=== PATIENT | female | born 1950 | race Caucasian/White ===

== ENCOUNTER 2018-01-08 17:52 | Observation (INO) ==
[2018-01-08 18:07] VITALS: BMI 29.2
[2018-01-08] MEDS ORDERED: MORPHINE SULFATE INJ 4 MG IM ONE (20:12)
[2018-01-08] MEDS ORDERED: ZOFRAN INJ 4 MG VIAL IM ONE (20:12)
[2018-01-08] MEDS ORDERED: MORPHINE SULFATE INJ 4 MG ONE (20:17)
[2018-01-08] MEDS ORDERED: ZOFRAN INJ 4 MG VIAL ONE (20:17)
--- NOTE | 2018-01-08 20:34 | ED.ABDFE ---
HPI Time Seen Time Seen by Provider: 01/08/18 19:57 PCP Primary Care Physician: [facility] HPI Comment HPI Comment: SEVERE LEFT SIDE PAIN AFTER A FALL 2 DAYS AGO. WORSE TODAY. EVALUATED AT ED IN [facility] AND [facility] FOR SAME. TAKING TYLENOL 3 FOR PAIN AND STILL HAVING 10/10 PAIN. Complaint Doctors Chief Complaint Comments: LEFT SIDED PIN AFTER A FALL. Chief Complaint:: PT C/O PAIN TO HER LEFT SIDE DUE TO FALLING IN THE TUB ON FRIDAY NIGHT , AND PT WAS SEEN IN [facility] ER CT AND ALL TEST WERE NEGATIVE , AND PT WAS SEEN AT THE [facility] TODAY AND PT WAS TOLD TO COME TO THE ER, PT C/O NOT BEING ABLE TO MOVE, WITHOUT HAVING PAIN , PT WAS GIVEN TYLENOL#3, AND A INJ OF MUSCLE RELAXER BEFORE LEAVING THE ER, BR Self Treatment fo Chief Complaint: PT STATES " SHE HAS BEEN LAYING IN THE BED " .BR Reviewed Nurses Notes Review: Yes Source History Provided: Family Member Mode of arrival Mode of Arrival: Ambulatory Timing Onset of Chief Complaint: 01/06/18 Came on: Suddenly Duration Since Onset: Constant Duration: Days Location Location: LUQ (LEFT CHEST) Severity Severity: Moderate Quality Quality: Aching and Sharp Context History of: Abdominal surgery Modifying factors Worsening Factors: Movement Improving Factors: Lying Still Associated signs and symptoms Associated Signs and Symptoms: Other (CHEST WALL/RIB PAIN, LEFT LEFT ABDOMINAL PAIN.) PMH PMH Past Medical History: Yes Past Medical History Comment: THYROID , CHOLESTEROL , GERD Past Surgical History: Yes Past Surgical History Comment: APPENDIX, TUBAL Family History History of Family Medical Conditions: No Social History Does patient currently use any type of tobacco product: No Have you used tobacco products in the last 12 months: No Type of Tobacco Use: None Does any household member use tobacco: No Do you use any recreational Drugs:: No Lives With: Family Lives Where: Home infectious screening In the last 2 months have you had wt loss of >10#?: NO Have you had fever, night sweats or hemotysis?: No Have you traveled outside the country in the last 6 months?: No Isolation: Standard ROS Review of Systems Constitutional: No Symptoms Reported Eyes: No Symptoms Reported ENTM: No Symptoms Reported Respiratoy: Other (PAIN ON DEEP BREATHING.) Cardiovascular: Chest Pain (LEFT RIB PAIN) Gastrointestinal/Abdominal: Abdominal Pain (LEFT UPPER ABDOMINAL PAIN.) Genitourinary: No Symptoms Reported Neurological: No Symptoms Reported Musculoskeletal: Muscle Pain Integumentary: Bruises (LUQ ABDOMEN.) Hematologic/Lymphatic: No Symptoms Reported Endocrine: No Symptoms Reported Psychiatric: No Symptoms Reported All Other Systems: Reviewed and Negative PE Vital Signs Vitals: Temperature 98.0 F Pulse Rate [Right Radial] 76 Pulse Rate 72 Respiratory Rate 18 Blood Pressure [Right Arm] 162/74 Blood Pressure 189/91 O2 Sat by Pulse Oximetry 94 General Limitations: No Limitations General Appearance: Alert and In No Apparent Distress (AT RESTN NO RESPMDISTRESS.) Head Head Exam: Normal Inspection Eyes Eye exam: Normal Appearance ENT ENT Exam: Normal Oropharynx, Normal External Ear Exam and TM's Normal Bilaterally Neck Neck Exam: Trachea Midline; negative Tenderness, Meningismus and Lymphadenopathy Chest Chest Inspection: Symmetric Chest Wall Rise Respiratory Respiratory Exam: Chest Wall Tenderness (LEFT CHEST WALL TENDERNESS.) Respiratory Exam: Bilateral: Rhonchi, Upper: Rhonchi and Lower: Rhonchi Cardiovascular Cardiovascular Exam: Regular Rate and Normal Rhythm Abdominal Exam Abdominal Exam: Normal Bowel Sounds, Soft and Tenderness Abdominal Tenderness: LUQ and Moderate Rectal Rectal Exam: Deferred Back Back Exam: Normal Inspection Extremeties Extremities Exam: Normal Inspection External Exam: Female: Deferred : Speculum Exam (Female): Deferred : Bimanual Exam (female): Deferred Neurologic Neurological Exam: Alert and Oriented X3; negative Motor Sensory Deficit Psychiatric Psychiatric Exam: Normal Affect and Normal Mood Skin Skin Exam: Other MDM Additional Information Obtained From Additional information provided by: Family Differential Diagnosis Other differential diagnosis: LUQ ABDOMINAL PAIN, CHEST PAIN, RIB PAIN, INTRAIABLE PAIN, CONTUSION OR RIB COURSE Treatment Treatment: SEE ORDERS. Consultation Consultation Comments: PATIENT ADMITTED TO HOSPITAL. Education/Counseling Education/Counseling: Patient and Family Educated On: Diagnosis ROR Labs Reviewed Result Diagrams: 01/10/18 04:53 01/10/18 04:53 Laboratory: 01/09/18 01:09 Urine,Clean Catch Urine Culture - Final Klebsiella Pneumoniae WBC 13.8 X10^3/uL (3.6-10.0) H 01/10/18 04:53 RBC 4.10 X10^6/uL (3.5-5.4) 01/10/18 04:53 Hgb 12.7 g/dL (12.0-16.0) 01/10/18 04:53 Hct 37.2 % (36.0-47.0) 01/10/18 04:53 MCV 90.8 fL (80.0-100.0) 01/10/18 04:53 MCH 30.9 pg (27.0-34.0) 01/10/18 04:53 MCHC 34.0 g/dL (33.0-35.0) 01/10/18 04:53 RDW 12.4 % (11.6-16.5) 01/10/18 04:53 Plt Count 285 X10^3/uL (150.0-450.0) 01/10/18 04:53 MPV 9.0 fL (7.4-11.0) 01/10/18 04:53 Neut % (Auto) 82.1 % (42.0-75.0) H 01/10/18 04:53 Lymph % (Auto) 14.3 % (21.0-51.0) L 01/10/18 04:53 [place] % (Auto) 3.4 % (0.0-13.0) 01/10/18 04:53 Eos % (Auto) 0.0 % (0.9-2.9) L 01/10/18 04:53 Baso % (Auto) 0.2 % (0.2-1.0) 01/10/18 04:53 Neut # (Auto) 11.3 x10^3/uL (2.2-4.8) H 01/10/18 04:53 Lymph # (Auto) 2.0 X10^3/uL (1.3-2.9) 01/10/18 04:53 [place] # (Auto) 0.5 x10^3/uL (0.3-0.8) 01/10/18 04:53 Eos # (Auto) 0.0 x10^3/uL (0.0-0.2) 01/10/18 04:53 Baso # (Auto) 0.0 X10^3/uL (0.0-0.1) 01/10/18 04:53 Absolute Nucleated RBC 0.0 /100WBC 01/10/18 04:53 Sodium 140 mmol/L (136-145) 01/10/18 04:53 Corrected Sodium 141 mmol/L (136-145) 01/10/18 04:53 Potassium 4.2 mmol/L (3.5-5.1) 01/10/18 04:53 Chloride 104 mmol/L (98-107) 01/10/18 04:53 Carbon Dioxide 28.4 mmol/L (21-32) 01/10/18 04:53 BUN 8 mg/dL (7-18) 01/10/18 04:53 Creatinine 0.83 mg/dL (0.55-1.02) 01/10/18 04:53 Est GFR (MDRD) Af Amer > 60 (>60) 01/10/18 04:53 Est GFR (MDRD) Non-Af > 60 (>60) 01/10/18 04:53 Glucose 148 mg/dL (65-99) H 01/10/18 04:53 Calcium 8.2 mg/dL (8.5-10.1) L 01/10/18 04:53 Corrected Calcium 8.8 mg/dL (8.5-10.1) 01/10/18 04:53 Total Bilirubin 0.30 mg/dL (0.2-1.0) 01/10/18 04:53 AST 20 Units/L (15-37) 01/10/18 04:53 ALT 30 Units/L (12-78) 01/10/18 04:53 Alkaline Phosphatase 123 Units/L (46-116) H 01/10/18 04:53 Total Protein 7.1 g/dL (6.4-8.2) 01/10/18 04:53 Albumin 3.2 g/dL (3.4-5.0) L 01/10/18 04:53 Globulin 3.9 g/dL (2.5-4.5) 01/10/18 04:53 Albumin/Globulin Ratio 0.8 Ratio (1.1-2.1) L 01/10/18 04:53 Specimen Type Clean catch urine 01/09/18 01:09 Urine Color Dark yellow (YELLOW) 01/09/18 01:09 Urine Appearance Clear (CLEAR) 01/09/18 01:09 Urine pH 6.0 (5.0 - 8.0) 01/09/18 01:09 Ur Specific [place] 1.020 (1.000-1.030) 01/09/18 01:09 Urine Protein 1+ (NEGATIVE) 01/09/18 01:09 Urine Glucose (UA) Negative (NEGATIVE) 01/09/18 01:09 Urine Ketones Negative (NEGATIVE) 01/09/18 01:09 Urine Occult Blood 1+ (NEGATIVE) 01/09/18 01:09 Urine Nitrite Negative (NEGATIVE) 01/09/18 01:09 Urine Bilirubin Negative (NEGATIVE) 01/09/18 01:09 Urine Urobilinogen Normal (NORMAL) 01/09/18 01:09 Ur Leukocyte Esterase 2+ (NEGATIVE) 01/09/18 01:09 Urine RBC 10-20 /HPF (NONE SEEN) 01/09/18 01:09 Urine WBC 10-20 /HPF (NONE SEEN) 01/09/18 01:09 Ur Squamous Epith Cells Moderate /HPF (NEGATIVE) 01/09/18 01:09 Urine Bacteria 2+ /HPF (NEGATIVE) 01/09/18 01:09 Ur Culture Indicated? Yes/culture set up 01/09/18 01:09 XRAY XRAY Interpreted by: Radiologist XRAY Findings: NOTED REPORT. Instructions Instructions: Rib Fracture, [id number]
[2018-01-08 20:37] LABS: BASOPHILS % (AUTO) 0.4 % (0.2-1.0); EOSINOPHILS # (AUTO) 0.1 x10^3/uL (0.0-0.2); EOSINOPHILS % (AUTO) 1.2 % (0.9-2.9); HEMATOCRIT 38.2 % (36.0-47.0); LYMPHOCYTES # (AUTO) 3.6 X10^3/uL (1.3-2.9); LYMPHOCYTES % (AUTO) 40.3 % (21.0-51.0); MEAN CORPUSCULAR HEMOGLOBIN 30.8 pg (27.0-34.0); MEAN CORPUSCULAR HGB CONC 34.1 g/dL (33.0-35.0); MEAN CORPUSCULAR VOLUME 90.4 fL (80.0-100.0); MEAN PLATELET VOLUME 8.3 fL (7.4-11.0); MONOCYTES # (AUTO) 0.8 x10^3/uL (0.3-0.8); MONOCYTES % (AUTO) 8.6 % (0.0-13.0); NEUTROPHILS # (AUTO) 4.4 x10^3/uL (2.2-4.8); NEUTROPHILS % (AUTO) 49.5 % (42.0-75.0); PLATELET COUNT 279 X10^3/uL (150.0-450.0); RED BLOOD COUNT 4.23 X10^6/uL (3.5-5.4); RED CELL DISTRIBUTION WIDTH 13.1 % (11.6-16.5); WHITE BLOOD COUNT 8.9 X10^3/uL (3.6-10.0)
[2018-01-08 21:17] LABS: ALANINE AMINOTRANSFERASE 30 Units/L (12-78); ALBUMIN 3.5 g/dL (3.4-5.0); ALKALINE PHOSPHATASE 128 Units/L (46-116); ASPARTATE AMINO TRANSFERASE 23 Units/L (15-37); BLOOD UREA NITROGEN 9 mg/dL (7-18); CALCIUM 8.4 mg/dL (8.5-10.1); CARBON DIOXIDE 27.9 mmol/L (21-32); CHLORIDE 104 mmol/L (98-107); CREATININE 0.77 mg/dL (0.55-1.02); SODIUM 141 mmol/L (136-145); TOTAL PROTEIN 7.1 g/dL (6.4-8.2); eGFR NON BLACK RACES > 60 (>60)
[2018-01-09] MEDS ORDERED: MORPHINE SULFATE INJ 4 MG IVP PRN (00:09)
[2018-01-09 01:45] LABS: BILIRUBIN,URINE NEGATIVE (NEGATIVE); BLOOD/HEMOGLOBIN,URINE 1+ (NEGATIVE); GLUCOSE, URINE NEGATIVE (NEGATIVE); KETONES,URINE NEGATIVE (NEGATIVE); LEUKOCYTE ESTERASE ,URINE 2+ (NEGATIVE); NITRITES,URINE NEGATIVE (NEGATIVE); PROTEIN,URINE 1+ (NEGATIVE); UROBILINOGEN,URINE NORMAL (NORMAL)
[2018-01-09 01:57] LABS: APPEARANCE,URINE CLEAR (CLEAR); COLOR,URINE DARK YELLOW (YELLOW)
[2018-01-09 01:58] LABS: BACTERIA,URINE 2+ /HPF (NEGATIVE); SQUAMOUS EPITHELIAL CELL,UR MODERATE /HPF (NEGATIVE)
[2018-01-09] MEDS: NS 1000 ML 1,000 ML IV SCH ×2 (02:03→13:57)
[2018-01-09] MEDS: ZOFRAN INJ 4 MG VIAL IVP PRN (02:04)
[2018-01-09] MEDS: MORPHINE SULFATE INJ 4 MG IVP PRN (05:40)
[2018-01-09] MEDS ORDERED: ZANAFLEX PO PRN (05:41)
[2018-01-09 06:18] LABS: BASOPHILS % (AUTO) 0.4 % (0.2-1.0); EOSINOPHILS # (AUTO) 0.1 x10^3/uL (0.0-0.2); HEMATOCRIT 36.3 % (36.0-47.0); HEMOGLOBIN 12.7 g/dL (12.0-16.0); LYMPHOCYTES # (AUTO) 3.2 X10^3/uL (1.3-2.9); LYMPHOCYTES % (AUTO) 33.9 % (21.0-51.0); MEAN CORPUSCULAR HEMOGLOBIN 31.6 pg (27.0-34.0); MEAN CORPUSCULAR HGB CONC 35.1 g/dL (33.0-35.0); MEAN CORPUSCULAR VOLUME 90.2 fL (80.0-100.0); MEAN PLATELET VOLUME 8.7 fL (7.4-11.0); MONOCYTES # (AUTO) 0.8 x10^3/uL (0.3-0.8); MONOCYTES % (AUTO) 8.9 % (0.0-13.0); NEUTROPHILS # (AUTO) 5.3 x10^3/uL (2.2-4.8); NEUTROPHILS % (AUTO) 55.8 % (42.0-75.0); PLATELET COUNT 270 X10^3/uL (150.0-450.0); RED BLOOD COUNT 4.02 X10^6/uL (3.5-5.4); RED CELL DISTRIBUTION WIDTH 12.8 % (11.6-16.5); WHITE BLOOD COUNT 9.4 X10^3/uL (3.6-10.0)
[2018-01-09 06:32] LABS: ALANINE AMINOTRANSFERASE 28 Units/L (12-78); ALBUMIN 3.3 g/dL (3.4-5.0); ALKALINE PHOSPHATASE 123 Units/L (46-116); ASPARTATE AMINO TRANSFERASE 20 Units/L (15-37); BLOOD UREA NITROGEN 9 mg/dL (7-18); CALCIUM 8.1 mg/dL (8.5-10.1); CARBON DIOXIDE 29.9 mmol/L (21-32); CHLORIDE 104 mmol/L (98-107); COR CA(FOR HYPOALB) 8.7 mg/dL (8.5-10.1); CREATININE 0.75 mg/dL (0.55-1.02); SODIUM 141 mmol/L (136-145); eGFR NON BLACK RACES > 60 (>60)
[2018-01-09] MEDS ORDERED: TYLENOL 325 MG TAB PO PRN (07:18)
[2018-01-09] MEDS: NORCO 7.5/325 MG TAB PO PRN (09:32)
[2018-01-09] MEDS ORDERED: ZOFRAN INJ 4 MG VIAL 16 MG, ATIVAN INJ 2 MG VIAL 1 MG, DECADRON INJ 10 MG in NS 50 ML I... IV PRN (10:33)
[2018-01-09] MEDS: SOLU-Medrol 125 MG VIAL IVP SCH ×2 (13:46→21:02)
--- NOTE | 2018-01-09 16:20 | DR.H&P ---
H&P - History & Physical for Day of: H&P Date: 01/08/18 - Chief Complaint Chief Complaint: left rib pain, painful breathing - History of Present Illness History of Present Illness: 67 WF ER ADMISSION AFTER PRESENTING WITH CO FALL EARLIER IN THE WEEK WITH LEFT RIB INJURY. PT C/O PAIN TO HER LEFT SIDE DUE TO FALLING IN THE TUB ON FRIDAY NIGHT , AND PT WAS SEEN IN [place] ER WAS TOLD CT AND ALL TEST WERE NEGATIVE , AND PT WAS SEEN AT THE [facility] TODAY AND PT WAS TOLD TO COME TO THE ER, PT C/O NOT BEING ABLE TO MOVE, WITHOUT HAVING SEVERE PAIN , PT WAS GIVEN TYLENOL#3, AND A INJ OF MUSCLE RELAXER BEFORE LEAVING THE ER WITHOUT ANY RELIEF OF SYMPTOMS. PT DENIES HX OF COPD, ASTHMA OR CAD. PT STATES SHE SLIPPED, NO SYNCOPE OR DIZZINESS. PT ADMITTED FOR PAIN CONTROL, EVALUATION OF PLEURITIC PAIN - Past Medical History Past Medical History: Anxiety, Arthritis - Past Surgical History Surgical History: Appendectomy - Family History Family Medical History: Diabetes Mellitus, Cancer, Hypertension - Social History Does patient currently use any type of tobacco product: No Have you used tobacco products in the last 12 months: No Type of Tobacco Use: None Does any household member use tobacco: No Alcohol Use: None Drug Use: None - Medications Home Medications: atorvastatin [From Lipitor] Allergy (Verified 01/08/18 17:59) ketorolac [From Toradol] Allergy (Verified 01/08/18 17:59) CONTINUE taking the following medications duloxetine 1 tab PO DAILY 01/08/18 [History] fenofibrate 80 mg PO DAILY 01/08/18 [History] levothyroxine [Synthroid] 1 tab PO DAILY 01/08/18 [History] propranolol 1 tab PO DAILY 01/08/18 [History] esomeprazole magnesium [Nexium] 20 mg PO QDAY 01/09/18 [History] - Review of Systems Constitutional: Weakness Eyes: No Symptoms Reported ENT: No Symptoms Reported Respiratory: Pleuritic Pain Cardiovascular: No Symptoms Reported Gastrointestinal: Nausea Genitourinary: No Symptoms Reported Musculoskeletal: Shoulder Pain, Back Pain Skin: No Symptoms Reported Neurological: No Symptoms Reported - Physical Exam Vital Signs: Temperature 97.9 F Pulse Rate [Right Radial] 67 Pulse Rate 72 Respiratory Rate 18 Blood Pressure [Right Arm] 128/75 Blood Pressure 189/91 O2 Sat by Pulse Oximetry 93 Oriented: Normal Eyes: Normal Ear: Normal Nose: Normal Throat: Normal Respiratory: RLL Diminished, LLL Diminished Cardiovascular: Normal Auscultation: Bowel Sounds: Normal Palpation: Normal Tenderness: Normal Skin: Bruising (MILD LEFT LATERAL UPPER ABD) Musculoskeletal: Left, Shoulder, Back:Thoracic, Tender (DIFFUSE LEFT RIBS, LATERAL CHEST WALL) Psychiatric: Anxiety Affect: Anxious Speech Pattern: Clear, Appropriate - Assessment/Plan (1) Multiple rib fractures Status: Acute Plan: ADMIT, PAIN CONTROL. PT CONSULT FOR RIB BELT/BINDER. RESP CONSULT FOR PULMONARY TOILETING. VERIFY HOME MEDS. SUPPLEMENTAL O2 PRN, BP CONTROL (2) Painful respiration Status: Acute (3) SUYAPA (generalized anxiety disorder) Status: Acute - Allergies Allergies/Adverse Reactions: Allergies Allergy/AdvReac Type Severity Reaction Status Date / Time atorvastatin [From Lipitor] Allergy Verified 01/08/18 17:59 ketorolac [From Toradol] Allergy Verified 01/08/18 17:59
--- NOTE | 2018-01-09 16:27 | PCM.PROG ---
Progress Note - Progress Note for Day of Date of Exam: 01/09/18 - Subjective Subjective: 67 WF ER ADMISSION WITH INTRACTABLE PAIN TO LEFT RIBS AND LATERAL CHEST AFTER FALL ON FRIDAY NIGHT. PT CURRENTLY ON IV MORPHINE WITHOUT RELIEF AND REPORTS OF KHALIL AND NAUSEA. PT DENIES HX OF COPD, ASTHMA OR CAD. PT GIVEN PO NORCO, PO MUSCLE RELAXER, ZOFRAN COCKTAIL, RIB BINDER - Past Medical Family Social History Past Med/Fam/Surg Hx: No changes since H&P Allergies: Allergies atorvastatin [From Lipitor] Allergy (Verified 01/08/18 17:59) ketorolac [From Toradol] Allergy (Verified 01/08/18 17:59) - Review of Systems ROS: No change since H&P - Vital Signs and I&O's Vital Signs: Temperature 97.9 F Pulse Rate [Right Radial] 67 Pulse Rate 72 Respiratory Rate 18 Blood Pressure [Right Arm] 128/75 Blood Pressure 189/91 O2 Sat by Pulse Oximetry 93 Intake and Output: Intake & Output 01/07/18 01/08/18 01/09/18 01/10/18 11:59 11:59 11:59 11:59 Intake Total 520 / 520 1653 / 1653 Balance 520 / 520 1653 / 1653 - Physical Exam Oriented: Normal Eyes: Normal Ear: Normal Nose: Normal Throat: Normal Respiratory: Left, Diminished Cardiovascular: Normal Auscultation: Bowel Sounds: Normal Tenderness: Normal Skin: Bruising (MILD LEFT LATERAL UPPER ABD) Musculoskeletal: Left, Shoulder, Back:Thoracic, Tender (DIFFUSE LEFT RIBS, LATERAL CHEST WALL) Psychiatric: Anxiety Affect: Anxious Speech Pattern: Clear, Appropriate - Laboratory and Diagnostics Result Diagrams: 01/09/18 05:30 01/09/18 05:30 Labs: Laboratory WBC 9.4 X10^3/uL (3.6-10.0) 01/09/18 05:30 RBC 4.02 X10^6/uL (3.5-5.4) 01/09/18 05:30 Hgb 12.7 g/dL (12.0-16.0) 01/09/18 05:30 Hct 36.3 % (36.0-47.0) 01/09/18 05:30 MCV 90.2 fL (80.0-100.0) 01/09/18 05:30 MCH 31.6 pg (27.0-34.0) 01/09/18 05:30 MCHC 35.1 g/dL (33.0-35.0) H 01/09/18 05:30 RDW 12.8 % (11.6-16.5) 01/09/18 05:30 Plt Count 270 X10^3/uL (150.0-450.0) 01/09/18 05:30 MPV 8.7 fL (7.4-11.0) 01/09/18 05:30 Neut % (Auto) 55.8 % (42.0-75.0) 01/09/18 05:30 Lymph % (Auto) 33.9 % (21.0-51.0) 01/09/18 05:30 [place] % (Auto) 8.9 % (0.0-13.0) 01/09/18 05:30 Eos % (Auto) 1.0 % (0.9-2.9) 01/09/18 05:30 Baso % (Auto) 0.4 % (0.2-1.0) 01/09/18 05:30 Neut # (Auto) 5.3 x10^3/uL (2.2-4.8) H 01/09/18 05:30 Lymph # (Auto) 3.2 X10^3/uL (1.3-2.9) H 01/09/18 05:30 [place] # (Auto) 0.8 x10^3/uL (0.3-0.8) 01/09/18 05:30 Eos # (Auto) 0.1 x10^3/uL (0.0-0.2) 01/09/18 05:30 Baso # (Auto) 0.0 X10^3/uL (0.0-0.1) 01/09/18 05:30 Absolute Nucleated RBC 0.0 /100WBC 01/09/18 05:30 Sodium 141 mmol/L (136-145) 01/09/18 05:30 Corrected Sodium TNP 01/09/18 05:30 Potassium 4.0 mmol/L (3.5-5.1) 01/09/18 05:30 Chloride 104 mmol/L (98-107) 01/09/18 05:30 Carbon Dioxide 29.9 mmol/L (21-32) 01/09/18 05:30 BUN 9 mg/dL (7-18) 01/09/18 05:30 Creatinine 0.75 mg/dL (0.55-1.02) 01/09/18 05:30 Est GFR (MDRD) Af Amer > 60 (>60) 01/09/18 05:30 Est GFR (MDRD) Non-Af > 60 (>60) 01/09/18 05:30 Glucose 101 mg/dL (65-99) H 01/09/18 05:30 Calcium 8.1 mg/dL (8.5-10.1) L 01/09/18 05:30 Corrected Calcium 8.7 mg/dL (8.5-10.1) 01/09/18 05:30 Total Bilirubin 0.30 mg/dL (0.2-1.0) 01/09/18 05:30 AST 20 Units/L (15-37) 01/09/18 05:30 ALT 28 Units/L (12-78) 01/09/18 05:30 Alkaline Phosphatase 123 Units/L (46-116) H 01/09/18 05:30 Total Protein 7.0 g/dL (6.4-8.2) 01/09/18 05:30 Albumin 3.3 g/dL (3.4-5.0) L 01/09/18 05:30 Globulin 3.7 g/dL (2.5-4.5) 01/09/18 05:30 Albumin/Globulin Ratio 0.9 Ratio (1.1-2.1) L 01/09/18 05:30 Specimen Type Clean catch urine 01/09/18 01:09 Urine Color Dark yellow (YELLOW) 01/09/18 01:09 Urine Appearance Clear (CLEAR) 01/09/18 01:09 Urine pH 6.0 (5.0 - 8.0) 01/09/18 01:09 Ur Specific [place] 1.020 (1.000-1.030) 01/09/18 01:09 Urine Protein 1+ (NEGATIVE) 01/09/18 01:09 Urine Glucose (UA) Negative (NEGATIVE) 01/09/18 01:09 Urine Ketones Negative (NEGATIVE) 01/09/18 01:09 Urine Occult Blood 1+ (NEGATIVE) 01/09/18 01:09 Urine Nitrite Negative (NEGATIVE) 01/09/18 01:09 Urine Bilirubin Negative (NEGATIVE) 01/09/18 01:09 Urine Urobilinogen Normal (NORMAL) 01/09/18 01:09 Ur Leukocyte Esterase 2+ (NEGATIVE) 01/09/18 01:09 Urine RBC 10-20 /HPF (NONE SEEN) 01/09/18 01:09 Urine WBC 10-20 /HPF (NONE SEEN) 01/09/18 01:09 Ur Squamous Epith Cells Moderate /HPF (NEGATIVE) 01/09/18 01:09 Urine Bacteria 2+ /HPF (NEGATIVE) 01/09/18 01:09 Ur Culture Indicated? Yes/culture set up 01/09/18 01:09 - Plan (1) Multiple rib fractures Status: Acute Plan: PAIN CONTROL. PT CONSULT FOR RIB BELT/BINDER. RESP CONSULT FOR PULMONARY TOILETING. VERIFY HOME MEDS. SUPPLEMENTAL O2 PRN, BP CONTROL (2) Painful respiration Status: Acute (3) SUYAPA (generalized anxiety disorder) Status: Acute (4) Headache Status: Acute Plan: PAIN CONTROL, MONITOR
[2018-01-10] MEDS: NS 1000 ML 1,000 ML IV SCH (02:49)
[2018-01-10] MEDS: NORCO 7.5/325 MG TAB PO PRN ×2 (04:03→11:37)
[2018-01-10 05:27] LABS: BASOPHILS % (AUTO) 0.2 % (0.2-1.0); HEMATOCRIT 37.2 % (36.0-47.0); HEMOGLOBIN 12.7 g/dL (12.0-16.0); LYMPHOCYTES % (AUTO) 14.3 % (21.0-51.0); MEAN CORPUSCULAR HEMOGLOBIN 30.9 pg (27.0-34.0); MEAN CORPUSCULAR VOLUME 90.8 fL (80.0-100.0); MONOCYTES # (AUTO) 0.5 x10^3/uL (0.3-0.8); MONOCYTES % (AUTO) 3.4 % (0.0-13.0); NEUTROPHILS # (AUTO) 11.3 x10^3/uL (2.2-4.8); NEUTROPHILS % (AUTO) 82.1 % (42.0-75.0); PLATELET COUNT 285 X10^3/uL (150.0-450.0); RED CELL DISTRIBUTION WIDTH 12.4 % (11.6-16.5); WHITE BLOOD COUNT 13.8 X10^3/uL (3.6-10.0)
[2018-01-10 05:29] LABS: ALANINE AMINOTRANSFERASE 30 Units/L (12-78); ALBUMIN 3.2 g/dL (3.4-5.0); ALKALINE PHOSPHATASE 123 Units/L (46-116); ASPARTATE AMINO TRANSFERASE 20 Units/L (15-37); BLOOD UREA NITROGEN 8 mg/dL (7-18); CALCIUM 8.2 mg/dL (8.5-10.1); CARBON DIOXIDE 28.4 mmol/L (21-32); CHLORIDE 104 mmol/L (98-107); COR CA(FOR HYPOALB) 8.8 mg/dL (8.5-10.1); COR NA(FOR HYPERGLY) 141 mmol/L (136-145); CREATININE 0.83 mg/dL (0.55-1.02); SODIUM 140 mmol/L (136-145); TOTAL PROTEIN 7.1 g/dL (6.4-8.2); eGFR NON BLACK RACES > 60 (>60)
[2018-01-10] MEDS: SOLU-Medrol 125 MG VIAL IVP SCH (05:38)
[2018-01-10] MEDS ORDERED: MEDROL DOSEPAK 4 MG PER TAB PO SCH (06:00)
[2018-01-10] MEDS ORDERED: TRICOR TAB 160 MG PO SCH (09:00)
[2018-01-10] MEDS ORDERED: SYNTHROID 112 mcg TAB PO SCH (09:00)
[2018-01-10] MEDS ORDERED: CYMBALTA PO SCH (09:00)
[2018-01-10] MEDS ORDERED: PROPRANOLOL PO SCH (09:00)
[2018-01-10] MEDS ORDERED: VALIUM PO ONE (11:10)
[2018-01-10] MEDS: MEDROL DOSEPAK 4 MG PER TAB PO SCH ×2 (11:36→13:42)
[2018-01-10 13:45] VITALS: BP 162/74
[2018-01-10] MEDS: MORPHINE SULFATE INJ 4 MG IVP PRN (14:05)
[2018-01-10] MEDS: ZOFRAN INJ 4 MG VIAL IVP PRN (14:06)
[2018-01-11] MEDS ORDERED: MEDROL DOSEPAK 4 MG PER TAB PO SCH ×2 (06:00→20:00)
[2018-01-11] MEDS ORDERED: MEDROL DOSEPAK 4 MG PER TAB PO NR (09:00)
[2018-01-12] MEDS ORDERED: MEDROL DOSEPAK 4 MG PER TAB PO SCH (06:00)
[2018-01-13] MEDS ORDERED: MEDROL DOSEPAK 4 MG PER TAB PO SCH (07:00)
[2018-01-14] MEDS ORDERED: MEDROL DOSEPAK 4 MG PER TAB PO SCH (06:00)
[2018-01-15] MEDS ORDERED: MEDROL DOSEPAK 4 MG PER TAB PO SCH (06:00)
== END 2018-01-10 14:30 | disposition home or self-care (01) ==
LOC: OBS 17:53 → ER 17:53 → OBS 01-09 00:30 → MED/SURG 01-09 15:23
PROVIDERS: ADMIT Internal Medicine; ATTEND Internal Medicine
DX: M50.323 Other cervical disc degeneration at C6-C7 level; R26.89 Other abnormalities of gait and mobility; W18.2XXA Fall in (into) shower or empty bathtub, initial encounter; R10.84 Generalized abdominal pain; R51 Headache; R07.81 Pleurodynia; S22.42XA Multiple fractures of ribs, left side, initial encounter for closed fracture; N39.0 Urinary tract infection, site not specified; B96.1 Klebsiella pneumoniae [K. pneumoniae] as the cause of diseases classified elsewhere; M51.36 Other intervertebral disc degeneration, lumbar region; M19.90 Unspecified osteoarthritis, unspecified site; Y92.89 Other specified places as the place of occurrence of the external cause; K21.9 Gastro-esophageal reflux disease without esophagitis; F41.1 Generalized anxiety disorder; Z91.81 History of falling
CPT/HCPCS: 36415; 74176; 80053; 81001; 85025; 87086; 87088; 87186; 94760; 96365; 96367; 96372; 96374; 97163; 97166; 99217; 99282; 99284; A4222; G0378; J2270; J2405; J2930; J7030